=== PATIENT | female | born 1990 | race African-American/Black ===

== ENCOUNTER → 2016-05-14 | Outpatient (CLI) | payer OTHER ==
[~2016-05-14] MED LIST: IBUP600 PO; MACR100C PO; PERI8.6T PO; PRENCAP10 PO
== END ==
LOC: HPND 08:13
PROVIDERS: ATTEND Obstetrics & Gynecology
DX: O30.042 Twin pregnancy, dichorionic/diamniotic, second trimester (principal); Z3A.23 23 weeks gestation of pregnancy
CPT/HCPCS: 76811; 76812; 76817